=== PATIENT | male | born 1970 | race Caucasian/White ===

== ENCOUNTER → 2022-11-11 | Outpatient (CLI) | payer BC ==
[~2022-11-11] MED LIST: HOLD METFORMIN - RECEIVED CONTRAST 20 ML VIAL IV SCH; IOHEXOL 350 MG/ML 100 ML (OMNIPAQUE 350) VIAL IV ONE; NS 50 ML (IVPB) BAG IV ONE
--- NOTE | 2022-11-11 08:45 | Diagnostic Imaging Report ---
PROCEDURE: CT abdomen and pelvis with and without contrast. TECHNIQUE: Precontrast acquisitions were acquired through the abdomen and pelvis. Multiple contiguous axial images were obtained through the abdomen and pelvis after the administration of intravenous contrast. Auto Exposure Controls were utilized during the CT exam to meet ALARA standards for radiation dose reduction. INDICATION: Lower abdominal pain and diarrhea. No prior studies are available for comparison. The lung bases are clear. No discrete liver mass is detected. The gallbladder is unremarkable. There is no biliary duct dilatation. The pancreas and spleen are unremarkable. No adrenal mass is detected. The left kidney contains several cortical low-attenuation lesions suggestive of cysts. Aorta is nonaneurysmal. There is a fat-containing umbilical hernia. There is a segment of significant wall thickening involving the sigmoid colon which does contain diverticula. There is surrounding inflammation present and findings are consistent with acute diverticulitis. No definite evidence of microperforation, abscess formation or bowel obstruction is seen at this time. There is no free fluid identified. The bladder and prostate are unremarkable. IMPRESSION: 1. Findings consistent with acute sigmoid diverticulitis without evidence of abscess formation or bowel obstruction. 2. Fat-containing umbilical hernia. Dictated by: Dictated on workstation # [id number]
== END ==
LOC: RAD 07:50
PROVIDERS: ATTEND Physician Assistant
DX: K42.9 Umbilical hernia without obstruction or gangrene (principal); R10.30 Lower abdominal pain, unspecified; K59.00 Constipation, unspecified
CPT/HCPCS: 74178

== ENCOUNTER 2023-01-25 05:33 | Outpatient (CLI) | payer BC ==
[~2023-01-25] VITALS: Ht 182.9 cm; Wt 125.6 kg
[2023-01-25] MEDS ORDERED: LISI10TA25 PO (09:10)
[2023-01-25] MEDS ORDERED: RT-ALBUINH INH (09:10)
[2023-01-25] MEDS ORDERED: FEXO1TAB43 PO (09:10)
== END 2023-01-25 09:19 | disposition home or self-care (01) ==
LOC: PREOP 05:33
PROVIDERS: ATTEND Surgery
DX: Z01.818 Encounter for other preprocedural examination (principal)

== ENCOUNTER 2023-02-01 08:09 | Day surgery (SDC) | payer BC ==
[~2023-02-01] VITALS: Ht 182 cm; Wt 125.6 kg
[~2023-02-01 08:09] MED LIST changes: +FEXO1TAB43 PO; -HOLD METFORMIN - RECEIVED CONTRAST 20 ML VIAL IV SCH; -IOHEXOL 350 MG/ML 100 ML (OMNIPAQUE 350) VIAL IV ONE; +LISI10TA25 PO; -NS 50 ML (IVPB) BAG IV ONE; +RT-ALBUINH INH
[2023-02-01] MEDS ORDERED: LACTATED RINGERS 1,000 ML IV STA (08:14)
[2023-02-01] MEDS ORDERED: PROPOFOL INJECTION 50 ML IV ONE (08:27)
[2023-02-01 08:35] VITALS: BP 140/87
--- NOTE | 2023-02-01 08:51 | Progress Note-Pre Operative ---
Pre-Operative Progress Note Date of Available H&P: January 10, 2023 Date H&P Reviewed: February 01, 2023 Time H&P Reviewed: 08:48 History & Physical: H&P Reviewed, Patient Examed, No changes noted Pre-Operative Diagnosis: Hx of diverticulitis, Screening TOBY MCKENZIE DO February 01, 2023 08:51
--- NOTE | 2023-02-01 09:19 | Progress Note-Post Operative ---
Post-Operative Progess Note Surgeon (s)/Glycerin Supervisor (s) Surgeon TOBY MCKENZIE DO Glycerin Supervisor: none Pre-Operative Diagnosis Hx of diverticulitis, Screening Post-Operative Diagnosis Polyp Acute diverticulitis int hemorrhoids Procedure & Operative Findings Date of Procedure 02/01/23 Procedure Performed/Findings Colonoscopy with hot bx PROCEDURE NOTE: After informed consent was obtained, the patient was brought to the endoscopy suite, placed in bed in left lateral decubitus position. He was administered IV sedation by the [employer] [facility]EL[employer] who then monitored his vitals the entire time, heart rate, blood pressure and pulse ox and the scope was inserted, pushed all the way to about 130 cm and pushed into the cecum, took a picture of appendiceal orifice and noted the ileocecal valve. Then slowly withdrew the scope insufflating to look circumferentially at the aly starting in the cecum, up the ascending colon to the hepatic flexure, then down the transverse colon to the splenic flexure, into the descending colon and down into the sigmoid. Throughout left side of colon I saw multiple diverticula, a stool ball with what looked like blood and a diverticula that looked like it had purulent fluid in it. I think he may have some acute diverticulitis going on right now. I also found a polyp in the sigmoid which I removed with a hot biopsy. Finally, into the rectal vault and retroflexed the scope; took a picture of the internal hemorrhoids. The patient tolerated the procedure. He was recovered in endoscopy suite. Recommended for repeat colonoscopy in 5 years. Anesthesia Type IV sedation by [employer] [facility] Estimated Blood Loss Estimated blood loss (mL): scant Specimens/Packing Specimens Removed sigmoid polyp TOBY MCKENZIE DO February 01, 2023 09:19
--- NOTE | 2023-02-01 09:21 | Endoscopy Discharge Instruct ---
Endo Procedure/Findings Findings 1.: Polyp 2.: Diverticulitis (possibly acute, pt told to go on 2-3 days of liquid diet. Call if pain gets worse or he has fever and will call in ABX) 3.: Internal Hemorrhoids Discharge Instructions - Activity: You might feel a little sleepy until tomorrow. This is due to the medicine you received to relax you. Until tomorrow, you should: NOT drive a car, operate machinery or power tools. NOT drink any alcoholic beverages. NOT make any important decisions or sign importortant papers. Do not return to work until tomorrow, unless otherwise instructed. Resume previous activities tomorrow. Diet: Start by taking liquids. If you tolerate liquids, advance to solid food. 1.: Colonscopy in 5 years Notify Physician - If you experience excessive bleeding, unusual abdominal pain, fever, or chest pain, contact your doctor immediately. Follow-Up: Other Follow up in my office in one week TOBY MCKENZIE DO February 01, 2023 09:21
[2023-02-01 09:22] VITALS: BP 135/74
--- NOTE | 2023-02-01 09:26 | Anesthesia-General Post-Op ---
MAC Patient Condition Mental Status/LOC: Same as Preop Cardiovascular: Satisfactory Nausea/Vomiting: Absent Respiratory: Satisfactory Pain: Controlled Complications: Absent Post Op Complications Complications None Follow Up Care/Instructions Patient Instructions None needed. Anesthesiology Discharge Order Discharge Order Patient is doing well, no complaints, stable vital signs, no apparent adverse anesthesia problems. No complications reported per nursing. BARBARA RAYMUNDO CRNA February 01, 2023 09:26
[2023-02-01 09:27] VITALS: BP 137/82
[2023-02-01 09:30] VITALS: BP 136/84
[2023-02-01 10:00] VITALS: BP 136/84
== END 2023-02-01 10:15 | disposition home or self-care (01) ==
LOC: ENDO 08:09
PROVIDERS: ATTEND Surgery
DX: Z12.11 Encounter for screening for malignant neoplasm of colon (principal); K63.5 Polyp of colon; K57.30 Diverticulosis of large intestine without perforation or abscess without bleeding; K57.32 Diverticulitis of large intestine without perforation or abscess without bleeding; K42.9 Umbilical hernia without obstruction or gangrene; E66.9 Obesity, unspecified; Z68.37 Body mass index [BMI] 37.0-37.9, adult